=== PATIENT | female | born 1985 | race Caucasian/White ===

== ENCOUNTER 2018-04-14 17:44 | Emergency (ER) | payer MEDICAID ==
[~2018-04-14] VITALS: Ht 160 cm; Wt 93.2 kg
[2018-04-14 17:53] VITALS: Ht 160 cm; Wt 93.2 kg
[2018-04-14] MEDS ORDERED: ACETAMINOPHEN325 MG PO (17:56)
[2018-04-14] MEDS ORDERED: IBUPROFEN200 MG PO (17:56)
[2018-04-14] MEDS ORDERED: LEXAPRO20 MG PO (17:57)
[2018-04-14] MEDS ORDERED: PRINZIDE 20/12.1 TA1 PO (17:57)
[2018-04-14 20:10] VITALS: BP 130/85
== END 2018-04-14 20:10 | disposition home or self-care (01) ==
LOC: D.ER 17:44
DX: M54.16 Radiculopathy, lumbar region (principal); M25.551 Pain in right hip; I10 Essential (primary) hypertension; K21.9 Gastro-esophageal reflux disease without esophagitis; F17.200 Nicotine dependence, unspecified, uncomplicated